=== PATIENT | male | born 1985 | race African-American/Black ===

== ENCOUNTER 2017-03-11 21:54 | Outpatient (CLI) | END 2017-03-11 21:55 | disposition short-term general hospital (02) | LOC: AMBL 21:54 | PROVIDERS: ATTEND Internal Medicine Geriatric Medicine | DX: R55 Syncope and collapse (principal); R41.0 Disorientation, unspecified; R40.4 Transient alteration of awareness ==

== ENCOUNTER 2018-05-14 16:10 | Outpatient (CLI) ==
--- NOTE | 2018-05-14 16:30 | DI ---
EXAM: CHEST FRONTAL AND LATERAL VIEWS HISTORY: Cough. COMPARISON: 11/10/2015 FINDINGS: Heart size and mediastinal contour remain within normal limits. No acute infiltrates. Normal vascularity with no pleural fluid or pneumothorax. The bony thorax has no acute finding. IMPRESSION: No acute process.
== END 2018-05-14 16:11 | disposition home or self-care (01) ==
LOC: RAD 16:10
PROVIDERS: ATTEND Nurse Practitioner Family
DX: R05 Cough (principal)